=== PATIENT | male | born 2000 | race Caucasian/White ===

== ENCOUNTER → 2020-08-19 12:15 | Outpatient (BNVA) | payer OTHER, SELFPAY | PROVIDERS: Visit Provider Nurse Practitioner Family | DX: Z20.828 Contact with and (suspected) exposure to other viral communicable diseases (principal); J06.9 Acute upper respiratory infection, unspecified | CPT/HCPCS: 87635 ==

== ENCOUNTER 2021-08-06 15:04 | Emergency (ER) | payer BC, SELFPAY ==
[2021-08-06 15:16] VITALS: BP 119/69; PULSE 74; RESP 16; TEMP 36.7; O2SAT 98; BMI 24.3
--- NOTE | 2021-08-06 15:22 | XRR_ITS ---
PROCEDURE INFORMATION: Exam: XR Left Ankle Exam date and time: 08/06/2021 3:22 PM Age: 20 years old Clinical indication: Pain; Ankle; Left; Additional info: Pain, trauma TECHNIQUE: Imaging protocol: XR Left ankle. Views: 3 or more views. COMPARISON: No relevant prior studies available. FINDINGS: Bones/joints: Normal. Soft tissues: Lateral soft tissue swelling. XR/XR ankle LT min 3V* [id number] IMPRESSION: No fracture identified. Radiation Dose CTDIVOL = (mGy): DLP = (mGy-cm)
--- NOTE | 2021-08-06 15:49 | W.ED.EXTPRO ---
HPI - Extremity Problem General: Chief complaint: Extremity Injury, Lower Stated complaint: LEFT ANKLE INJURY Time Seen by Provider: 08/06/21 15:20 History of Present Illness: HPI Narrative: Ankle pain from basketball injury last night twisted ankle. MD Complaint: joint pain Onset (ago): hour(s) Pain Consistency: constant Location: left and lower extremity Severity scale (1-10): 4 Quality: aching Radiation: none Relieving factors: immobilization Exacerbating factors: range of motion and weight bearing Associated symptoms: Reports no associated symptoms; Deny fever(s) Review of Systems Const: Denies: fever(s) or chills Musc: Reports: joint pain (Left ankle) and joint swelling Psych: Denies: anxiety or depression Physical Exam Const: COMMON NORMALS: no acute distress GENERAL APPEARANCE: cooperative Extremity: LEFT LOWER EXTREMITY: Yes ankle joint (Swelling to lateral ankle tenderness. Distal neurovascular intact.) Course Vital Signs: Vital signs: Vital Signs Temperature 98.1 F 08/06/21 15:16 Pulse Rate 74 08/06/21 15:16 Respiratory Rate 16 08/06/21 15:16 Blood Pressure 119/69 08/06/21 15:16 Pulse Oximetry 98 08/06/21 15:16 Coding Level of Care Code ED [employer] for Sonja Salas
== END 2021-08-06 16:29 | disposition home or self-care (01) ==
PROVIDERS: Emergency Provider Nurse Practitioner Family
DX: S99.912A Unspecified injury of left ankle, initial encounter (principal); X50.1XXA Overexertion from prolonged static or awkward postures, initial encounter; Y93.67 Activity, basketball
CPT/HCPCS: 73610; 99282

== ENCOUNTER 2023-06-15 18:00 | Emergency (ER) | payer OTHER, SELFPAY ==
[2023-06-15 18:05] VITALS: BP 123/66; PULSE 114; RESP 18; TEMP 37.3; O2SAT 98
== END 2023-06-15 20:10 | disposition left against medical advice (07) ==
PROVIDERS: Emergency Provider Family Medicine; PCP Nurse Practitioner Family
DX: Z53.21 Procedure and treatment not carried out due to patient leaving prior to being seen by health care provider (principal)